=== PATIENT | female | born 1970 | race Two or more races ===

== ENCOUNTER → 2025-02-04 | Outpatient (CLI) | payer BC, SELFPAY ==
--- NOTE | 2025-02-04 08:30 | XR_ITS ---
Examination: Screening digital mammography, bilateral Computer aided detection 3-D breast Tomosynthesis, bilateral Date and time of exam: February 04, 2025 0822 hours Compared to mammograms dating to December 08, 2015 Indication: Screening Technique: Nonmagnified MLO, CC views of the breasts to been obtained, reconstructed from 3-D Tomosynthesis images. R2 computer aided detection program utilized for evaluation of suspicious masses and/or abnormal calcifications. 3-D Tomosynthesis images obtained. Findings: The breasts are heterogeneously dense, which may obscure small masses 10 mm focal asymmetry 12:00 position left breast Impression: BI-RADS Category 0: Incomplete: Need additional imaging evaluation Recommend follow-up spot tomographic views of 10 mm focal asymmetry 12:00 position left breast as well as bilateral breast sonography to complete the workup
== END | disposition home or self-care (01) ==
LOC: CDIM 08:13
PROVIDERS: Referring Provider Obstetrics & Gynecology; Visit Provider Obstetrics & Gynecology
DX: Z12.31 Encounter for screening mammogram for malignant neoplasm of breast (principal); N64.89 Other specified disorders of breast
CPT/HCPCS: 77063; 77067

== ENCOUNTER → 2025-04-06 | Outpatient (CLI) | payer BC, SELFPAY ==
--- NOTE | 2025-04-06 11:00 | XR_ITS ---
Examination: Breast ultrasound, unilateral, left complete Date and time of exam: April 06, 2025, 1115 hours INDICATIONS: Mammogram February 05, 2000 2510 mm focal asymmetry at 12 o'clock position left breast. Technique: Real-time more scale ultrasonographic imaging performed left breast including all 4 quadrants as well as nipple retroareolar and axillary region. Findings: 12:00 nodule circumscribed 9 x 8 mm 2:00 cyst 4 x 3 mm 11:00 nodule lobular margins 11 x 7 mm Retroareolar nodule circumscribed 5 x 5 mm IMPRESSION: BI-RADS Category 3: Probably benign findings 1 additional 6-month left breast sonography follow-up is needed to document stability of solid nodules described above
--- NOTE | 2025-04-06 11:30 | XR_ITS ---
Examination: Diagnostic digital mammography, unilateral, left Computer aided detection 3-D breast Tomosynthesis, unilateral Date and time of exam: April 06, 2025, 11:36 a.m. INDICATIONS: Mammogram February 05, 2000 2510 mm focal asymmetry 12 o'clock position left breast Technique: Nonmagnified MLO, CC views of the left breast have been obtained, reconstructed from 3-D Tomosynthesis images. R2 computer aided detection program utilized for evaluation of suspicious masses and/or abnormal calcifications. 3-D Tomosynthesis images obtained. Findings: The breast is heterogeneously dense, which may obscure small masses Focal asymmetry remains 9 mm upper left breast on the MLO spot compression view Impression: BI-RADS category 3: Probably benign findings 1 additional 6-month left mammogram follow-up is needed
== END | disposition home or self-care (01) ==
PROVIDERS: PCP Family Medicine; Referring Provider Family Medicine; Visit Provider Family Medicine
DX: R92.332 Mammographic heterogeneous density, left breast (principal); N63.25 Unspecified lump in the left breast, overlapping quadrants; N63.42 Unspecified lump in left breast, subareolar; N63.22 Unspecified lump in the left breast, upper inner quadrant
CPT/HCPCS: 76641; 77061; 77065; G0279